=== PATIENT | female | born 1945 | race Caucasian/White ===

== ENCOUNTER 2019-12-06 08:42 | Emergency (ER) | payer MEDICARE, OTHER ==
[2019-12-06] MEDS ORDERED: VENTOLIN COMMON CANISTER IH ONE (09:00)
[2019-12-06] MEDS ORDERED: solu-MEDROL 125 MG IV ONE (09:04)
[2019-12-06 09:09] LABS: A-aADO2 103; ABG HEMOGLOBIN 14.3; ABG POTASSIUM 3.8 (3.5-5.1); ABG SITE RIGHT RADIAL; ALLEN TEST OK? YES; ARTERIAL BLOOD GAS BASE EXCESS -3.7 (-2.0-2.0); ARTERIAL BLOOD GAS FIO2 36 %; ARTERIAL BLOOD GAS PCO2 42 mmHg (35-45); ARTERIAL BLOOD GAS PO2 101 mmHg (75-100); ARTERIAL BLOOD GAS pH 7.33 (7.35-7.45); CARBOXYHEMOGLOBIN 0.7 % THgb (0.0-6.9); HCO3- 22.1 (22-28); HGB O2 SAT 96.6 g/dF (94-100); Lactic Acid 1.1 (0.4-2.0); Methhemoglobin 0.8 % (1.4-1.5); O2 CONTENT 36 % vol
[2019-12-06] MEDS ORDERED: solu-MEDROL 125 MG ONE (09:10)
[2019-12-06] MEDS ORDERED: Lasix 40 MG/4 ML IV ONE ×2 (09:12→13:10)
[2019-12-06] MEDS ORDERED: NITRO-BID 2% UD PACKETS TOP ONE (09:13)
[2019-12-06] MEDS ORDERED: Lasix 40 MG/4 ML ONE ×2 (09:14→13:45)
--- NOTE | 2019-12-06 09:14 | ERPHSYRPT ---
- History of Present Illness Time Seen by Provider: 12/06/19 09:00 Source: patient Exam Limitations: no limitations Physician History: 74 yo presented with gradual worsening SOB for 2 days with activity initially but since last night even at resting and with lying down causing difficult to sleep. she is c/o pressure tightness in center of chest with SOB. denies any h/o CHF /COPD etc. denies fever or chills but has mild dry to wet cough. no known sick contact. patient was in severe distress on presentation with saturation around 85% RA , placed on 4 L and is now above 95%. Timing/Duration: day(s) (2), gradual onset, worse Activities at Onset: rest Severity of Dyspnea-Max: severe Severity of Dyspnea-Current: severe Possible Cause: no prior episodes Modifying Factors: Improves With: activity Associated Symptoms: constant, chest pain/discomfort, wheezing, sweating, tightness, No edema, No fever Allergies/Adverse Reactions: No Known Drug Allergies Allergy (Verified 12/06/19 09:52) Home Medications: Atorvastatin Calcium [Lipitor] 10 mg PO DAILY 10/26/15 [History] Calcium Carbonate/Vitamin D3 [Calcium 600 + Vit D Tablet] 1 ea PO DAILY 10/26/15 [History] Carvedilol 3.125 mg [Coreg 3.125 MG] 6.25 mg PO BID 10/26/15 [History] Clopidogrel Bisulfate 75 mg [PLAVIX 75 MG Tablet] 75 mg PO DAILY 10/26/15 [History] Levothyroxine Sodium 100 Mcg [Synthroid 100 Mcg] 100 mcg PO DAILY 10/26/15 [History] Losartan Potassium 100 mg PO DAILY 10/26/15 [History] Aspirin 81 gm Chew [Baby Aspirin 81 mg Chew] 1 tab PO DAILY 12/06/19 [History] Cholecalciferol (Vitamin D3) [D-2000] 2,000 unit PO DAILY 12/06/19 [History] Diphenhydramine HCl 25 mg [Benadryl 25 mg Capsule] 1 tab PO HS 12/06/19 [History] Magnesium Oxide [Magnesium] 400 mg PO DAILY 12/06/19 [History] Potassium Chloride 10 meq PO DAILY 12/06/19 [History] hydroCHLOROthiazide [Hydrochlorothiazide] 12.5 mg PO DAILY 12/06/19 [History] - Review of Systems Constitutional: Chills, Fatigue Eyes: No Symptoms Ears, Nose, & Throat: No Symptoms Respiratory: Dyspnea, Wheezing Cardiac: Chest Pain Abdominal/Gastrointestinal: No Symptoms Genitourinary Symptoms: No Symptoms Musculoskeletal: No Symptoms Skin: No Symptoms Neurological: No Symptoms Psychological: No Symptoms Endocrine: No Symptoms Hematologic/Lymphatic: No Symptoms, Easy Bruising Immunological/Allergic: No Symptoms - Past Medical History Pertinent Past Medical History: No Neurological History: No Pertinent History ENT History: No Pertinent History Cardiac History: No Pertinent History Respiratory History: No Pertinent History Endocrine Medical History: Other Musculoskeletal History: No Pertinent History GI Medical History: Polyps History: No Pertinent History Psycho-Social History: No Pertinent History Female Reproductive Disorders: Other - Past Surgical History Past Surgical History: Yes Neuro Surgical History: No Pertinent History Cardiac: No Pertinent History Gastrointestinal: Cholecystectomy Female Surgical History: Section, Hysterectomy Other Surgical History: states ear stapenectomy bilateral, x three,breast bx x 2-right,1-left,bx bx benign,hysterectomy after uterine rupture, thryroid cancer - Social History Smoking Status: Never smoker Exposure to second hand smoke: No Drug Use: none - Nursing Vital Signs Nursing Vital Signs: Initial Vital Signs Temperature 97.9 F 12/06/19 09:35 Pulse Rate 95 H 12/06/19 09:35 Respiratory Rate 40 H 12/06/19 09:35 Blood Pressure 197/113 12/06/19 09:35 O2 Sat by Pulse Oximetry 85 L 12/06/19 09:35 Pain Scale Pain Intensity 0 - Physical Exam General Appearance: moderate distress, alert Eye Exam: PERRL/EOMI, eyes nml inspection Ears, Nose, Throat Exam: hearing grossly normal, pharyngeal erythema Neck Exam: normal inspection, non-tender, supple, full range of motion Respiratory Exam: respiratory distress, accessory muscle use, crackles/rales, rhonchi Cardiovascular/Chest Exam: normal heart sounds, regular rate/rhythm Abdominal/Gastrointestinal Exam: soft, normal bowel sounds, tenderness Extremity Exam: non-tender, normal range of motion, normal inspection, normal capillary refill Neurologic Exam: alert, oriented x 3, cooperative Skin Exam: normal color, warm, dry SpO2 Interpretation: normal, O2 applied SpO2: 96 O2 Delivery: Nasal Cannula (4L) - Course Nursing assessment & vital signs reviewed: Yes EKG Interpreted by Me: RATE (93), Sinus Rhythm, NORMAL AXIS, NORMAL INTERVALS, Non-specific ST Changes Ordered Tests: Active Orders 24 hr Category Date Time Status Ophthalmic Medical Assistant STAT Care 12/06/19 09:06 Active EKG-ER Only STAT Care 12/06/19 09:04 Active IV Insertion STAT Care 12/06/19 09:04 Active Oxygen-ED Only Nasal Cannula 4 lpm Care 12/06/19 09:04 Active CHEST 1 VIEW (PORTABLE) Stat Exams 12/06/19 09:05 Taken CHEST WITH CONTRAST [CT] Stat Exams 12/06/19 10:38 Taken ARTERIAL BLOOD GASES Stat Lab 12/06/19 09:06 Completed BLOOD CULTURE Stat Lab 12/06/19 09:20 Received CBC W DIFF Stat Lab 12/06/19 09:30 Completed CMP Stat Lab 12/06/19 09:30 Completed D-DIMER QUANTITATIVE Stat Lab 12/06/19 09:30 Completed Lactic Acid Stat Lab 12/06/19 09:06 Completed MAGNESIUM Stat Lab 12/06/19 09:30 Completed NT PRO BNP Stat Lab 12/06/19 09:30 Completed PROTIME WITH INR Stat Lab 12/06/19 09:30 Completed PTT Stat Lab 12/06/19 09:30 Completed TROPONIN Q3H Lab 12/06/19 09:30 Completed TROPONIN Q3H Lab 12/06/19 12:15 Completed TROPONIN Q3H Lab 12/06/19 15:15 Ordered TROPONIN Q3H Lab 12/06/19 18:15 Ordered TROPONIN Q3H Lab 12/06/19 21:15 Ordered UA W/RFX UR CULTURE Stat Lab 12/06/19 10:21 Completed BiPap/CPAP STAT RT 12/06/19 09:41 Active Respiratory MDI UD RT 12/06/19 09:41 Active Respiratory Therapy Assessment DAILY RT 12/06/19 09:41 Active Medication Summary Generic Name Dose Route Start Last Admin Trade Name Freq PRN Reason Stop Dose Admin Aspirin 324 mg 12/06/19 10:00 12/06/19 09:51 Ecotrin 81 Mg PO 01/05/20 09:59 324 mg DAILY NATHAN Administration Carvedilol 6.25 mg 12/06/19 14:00 Coreg 6.25 Mg PO 12/06/19 14:01 NOW ONE Clopidogrel Bisulfate 75 mg 12/07/19 10:00 Plavix 75 Mg Tablet PO 01/06/20 09:59 DAILY NATHAN Levothyroxine Sodium 100 mcg 12/07/19 10:00 Synthroid 100 Mcg PO 01/06/20 09:59 QAM NATHAN Losartan Potassium 50 mg 12/07/19 10:00 Cozaar 50 Mg PO 01/06/20 09:59 DAILY NATHAN Potassium Chloride 10 meq 12/07/19 10:00 Klor Con 10 Meq PO 01/06/20 09:59 DAILY NATHAN Simvastatin 10 mg 12/07/19 10:00 Zocor 10mg PO 01/06/20 09:59 DAILY NATHAN Discontinued Medications Generic Name Dose Route Start Last Admin Trade Name Freq PRN Reason Stop Dose Admin Albuterol Sulfate 4 puff 12/06/19 09:00 12/06/19 09:00 Ventolin Common Canister IH 12/06/19 09:01 4 puff STAT ONE Administration Furosemide 40 mg 12/06/19 09:12 12/06/19 09:20 Lasix 40 Mg/4 Ml IV 12/06/19 09:13 40 mg STAT ONE Administration Furosemide Confirm 12/06/19 09:14 Lasix 40 Mg/4 Ml Administered 12/06/19 09:15 Dose 40 mg .ROUTE .STK-MED ONE Furosemide 20 mg 12/06/19 13:10 12/06/19 13:50 Lasix 40 Mg/4 Ml IV 12/06/19 13:11 20 mg STAT ONE Administration Furosemide Confirm 12/06/19 13:45 Lasix 40 Mg/4 Ml Administered 12/06/19 13:46 Dose 40 mg .ROUTE .STK-MED ONE Piperacillin Sod/Tazobactam 100 mls @ 200 mls/hr 12/06/19 10:49 12/06/19 12:52 Sod 3.375 gm/ Sodium Chloride IV 12/06/19 11:18 200 mls/hr STAT ONE Administration Sodium Chloride Confirm 12/06/19 11:08 Sodium Chloride 100ml Mini-Bag Plus Administered 12/06/19 11:09 Dose 100 mls @ ud IV .STK-MED ONE Methylprednisolone Sodium Succinate 125 mg 12/06/19 09:04 12/06/19 09:15 Solu-Medrol 125 Mg IV 12/06/19 09:05 125 mg STAT ONE Administration Methylprednisolone Sodium Succinate Confirm 12/06/19 09:10 Solu-Medrol 125 Mg Administered 12/06/19 09:11 Dose 125 mg .ROUTE .STK-MED ONE Nitroglycerin 1 gm 12/06/19 09:13 12/06/19 09:20 Nitro-Bid 2% Ud Packets TOP 12/06/19 09:14 1 gm STAT ONE Administration Nitroglycerin Confirm 12/06/19 09:19 Nitro-Bid 2% Ud Packets Administered 12/06/19 09:20 Dose 1 gm .ROUTE .STK-MED ONE Piperacillin Sod/Tazobactam Sod Confirm 12/06/19 11:08 Zosyn 3.375 Gm Vial Administered 12/06/19 11:09 Dose 3.375 gm IV .STK-MED ONE Lab/Rad Data: Laboratory Result Diagrams 12/06/19 09:30 12/06/19 09:30 Laboratory Results 12/06/19 12/06/19 12/06/19 Range/Units Unknown 12:15 10:21 WBC (4.0-10.5) K/mm3 RBC (4.1-5.4) M/mm3 Hgb (12.0-16.0) gm/dl Hct (35-47) % MCV (78-100) fl MCH (26-32) pg MCHC (32-36) g/dl RDW (11.5-14.0) % Plt Count (150-450) K/mm3 MPV (7.5-11.0) fl Gran % (36.0-66.0) % Eos # (Auto) (0-0.5) Absolute Lymphs (auto) (1.0-4.6) Absolute Monos (auto) (0.0-1.3) Lymphocytes % (24.0-44.0) % Monocytes % (0.0-12.0) % Eosinophils % (0.00-5.0) % Basophils % (0.0-0.4) % Absolute Granulocytes (1.4-6.9) Basophils # (0-0.4) PT (9.95-12.35) SECONDS INR (0.8-3.0) APTT (25.3-37.0) SECONDS D-Dimer (215-500) ng/mL Puncture Site pCO2 (35-45) mmHg pO2 (75-100) mmHg Base Excess (-2.0-2.0) O2 Saturation (94-100) g/dF ABG pH (7.35-7.45) ABG HCO3 (22-28) ABG O2 Sat (Measured) (95-100) % ABG O2 Content % vol Benjamin Test A-a Gradient a/A Ratio Hemoglobin Carboxyhemoglobin (0.0-6.9) % THgb Methemoglobin (1.4-1.5) % Potassium (3.5-5.1) Temperature C POC O2 Flow Rate % Sodium (137-145) mmol/L Chloride (98-107) mmol/L Carbon Dioxide (22-30) mmol/L Anion Gap (5-15) MEQ/L BUN (7-17) mg/dL Creatinine (0.52-1.04) mg/dL Estimated GFR ML/MIN Glucose (74-106) mg/dL Lactic Acid (0.4-2.0) Calcium (8.4-10.2) mg/dL Magnesium (1.6-2.3) mg/dL Total Bilirubin (0.2-1.3) mg/dL AST (14-36) U/L ALT (0-35) U/L Alkaline Phosphatase (38-126) U/L Troponin I 0.086 H* (0.000-0.034) ng/mL NT-Pro-B Natriuret Pep (0-900) pg/mL Serum Total Protein (6.3-8.2) g/dL Albumin (3.5-5.0) g/dL Urine Color COLORLESS (YELLOW) Urine Appearance CLEAR (CLEAR) Urine pH 5.0 (5-6) Ur Specific [place] 1.005 (1.005-1.025) Urine Protein NEGATIVE (Negative) Urine Ketones NEGATIVE (NEGATIVE) Urine Blood NEGATIVE (0-5) Fly/ul Urine Nitrite NEGATIVE (NEGATIVE) Urine Bilirubin NEGATIVE (NEGATIVE) Urine Urobilinogen NEGATIVE (0-1) mg/dL Ur Leukocyte Esterase NEGATIVE (NEGATIVE) Urine WBC (Auto) 0-2 (0-5) /HPF Urine RBC (Auto) 0-2 (0-2) /HPF U Hyaline Cast (Auto) 0-2 (0-2) /LPF U Epithel Cells (Auto) RARE (FEW) /HPF Urine Bacteria (Auto) NONE (NEGATIVE) /HPF Urine Mucus (Auto) SLIGHT (NEGATIVE) /HPF Urine Culture Reflexed NO (NO) Urine Glucose NEGATIVE (NEGATIVE) mg/dL Influenza Type A Ag NEGATIVE (NEGATIVE) Influenza Type B Ag NEGATIVE (NEGATIVE) RSV (PCR) NEGATIVE (Negative) 12/06/19 12/06/19 12/06/19 Range/Units 09:30 09:30 09:30 WBC (4.0-10.5) K/mm3 RBC (4.1-5.4) M/mm3 Hgb (12.0-16.0) gm/dl Hct (35-47) % MCV (78-100) fl MCH (26-32) pg MCHC (32-36) g/dl RDW (11.5-14.0) % Plt Count (150-450) K/mm3 MPV (7.5-11.0) fl Gran % (36.0-66.0) % Eos # (Auto) (0-0.5) Absolute Lymphs (auto) (1.0-4.6) Absolute Monos (auto) (0.0-1.3) Lymphocytes % (24.0-44.0) % Monocytes % (0.0-12.0) % Eosinophils % (0.00-5.0) % Basophils % (0.0-0.4) % Absolute Granulocytes (1.4-6.9) Basophils # (0-0.4) PT 11.5 (9.95-12.35) SECONDS INR 1.02 (0.8-3.0) APTT 27.0 (25.3-37.0) SECONDS D-Dimer 608 H* (215-500) ng/mL Puncture Site pCO2 (35-45) mmHg pO2 (75-100) mmHg Base Excess (-2.0-2.0) O2 Saturation (94-100) g/dF ABG pH (7.35-7.45) ABG HCO3 (22-28) ABG O2 Sat (Measured) (95-100) % ABG O2 Content % vol Benjamin Test A-a Gradient a/A Ratio Hemoglobin Carboxyhemoglobin (0.0-6.9) % THgb Methemoglobin (1.4-1.5) % Potassium 4.0 (3.5-5.1) Temperature C POC O2 Flow Rate % Sodium 140 (137-145) mmol/L Chloride 107 (98-107) mmol/L Carbon Dioxide 24 (22-30) mmol/L Anion Gap 13.8 (5-15) MEQ/L BUN 25 H (7-17) mg/dL Creatinine 1.07 H (0.52-1.04) mg/dL Estimated GFR 53.6 ML/MIN Glucose 233 H (74-106) mg/dL Lactic Acid (0.4-2.0) Calcium 9.1 (8.4-10.2) mg/dL Magnesium 2.0 (1.6-2.3) mg/dL Total Bilirubin 0.60 (0.2-1.3) mg/dL AST 50 H (14-36) U/L ALT 49 H (0-35) U/L Alkaline Phosphatase 132 H (38-126) U/L Troponin I < 0.012 (0.000-0.034) ng/mL NT-Pro-B Natriuret Pep 1140 H (0-900) pg/mL Serum Total Protein 7.1 (6.3-8.2) g/dL Albumin 4.0 (3.5-5.0) g/dL Urine Color (YELLOW) Urine Appearance (CLEAR) Urine pH (5-6) Ur Specific [place] (1.005-1.025) Urine Protein (Negative) Urine Ketones (NEGATIVE) Urine Blood (0-5) Fly/ul Urine Nitrite (NEGATIVE) Urine Bilirubin (NEGATIVE) Urine Urobilinogen (0-1) mg/dL Ur Leukocyte Esterase (NEGATIVE) Urine WBC (Auto) (0-5) /HPF Urine RBC (Auto) (0-2) /HPF U Hyaline Cast (Auto) (0-2) /LPF U Epithel Cells (Auto) (FEW) /HPF Urine Bacteria (Auto) (NEGATIVE) /HPF Urine Mucus (Auto) (NEGATIVE) /HPF Urine Culture Reflexed (NO) Urine Glucose (NEGATIVE) mg/dL Influenza Type A Ag (NEGATIVE) Influenza Type B Ag (NEGATIVE) RSV (PCR) (Negative) 12/06/19 12/06/19 Range/Units 09:30 09:06 WBC 11.1 H (4.0-10.5) K/mm3 RBC 4.50 (4.1-5.4) M/mm3 Hgb 14.0 (12.0-16.0) gm/dl Hct 41.7 (35-47) % MCV 92.7 (78-100) fl MCH 31.1 (26-32) pg MCHC 33.6 (32-36) g/dl RDW 13.4 (11.5-14.0) % Plt Count 330 (150-450) K/mm3 MPV 10.6 (7.5-11.0) fl Gran % 64.3 (36.0-66.0) % Eos # (Auto) 0.28 (0-0.5) Absolute Lymphs (auto) 2.81 (1.0-4.6) Absolute Monos (auto) 0.80 (0.0-1.3) Lymphocytes % 25.4 (24.0-44.0) % Monocytes % 7.2 (0.0-12.0) % Eosinophils % 2.5 (0.00-5.0) % Basophils % 0.6 (0.0-0.4) % Absolute Granulocytes 7.12 H (1.4-6.9) Basophils # 0.07 (0-0.4) PT (9.95-12.35) SECONDS INR (0.8-3.0) APTT (25.3-37.0) SECONDS D-Dimer (215-500) ng/mL Puncture Site RIGHT RADIAL pCO2 42 (35-45) mmHg pO2 101 H (75-100) mmHg Base Excess -3.7 L (-2.0-2.0) O2 Saturation 96.6 (94-100) g/dF ABG pH 7.33 L (7.35-7.45) ABG HCO3 22.1 (22-28) ABG O2 Sat (Measured) 98.0 (95-100) % ABG O2 Content 36 % vol Benjamin Test YES A-a Gradient 103 a/A Ratio 0.50 Hemoglobin 14.3 Carboxyhemoglobin 0.7 (0.0-6.9) % THgb Methemoglobin 0.8 L (1.4-1.5) % Potassium 3.8 (3.5-5.1) Temperature 37.0 C POC O2 Flow Rate 36 % Sodium (137-145) mmol/L Chloride (98-107) mmol/L Carbon Dioxide (22-30) mmol/L Anion Gap (5-15) MEQ/L BUN (7-17) mg/dL Creatinine (0.52-1.04) mg/dL Estimated GFR ML/MIN Glucose (74-106) mg/dL Lactic Acid 1.1 (0.4-2.0) Calcium (8.4-10.2) mg/dL Magnesium (1.6-2.3) mg/dL Total Bilirubin (0.2-1.3) mg/dL AST (14-36) U/L ALT (0-35) U/L Alkaline Phosphatase (38-126) U/L Troponin I (0.000-0.034) ng/mL NT-Pro-B Natriuret Pep (0-900) pg/mL Serum Total Protein (6.3-8.2) g/dL Albumin (3.5-5.0) g/dL Urine Color (YELLOW) Urine Appearance (CLEAR) Urine pH (5-6) Ur Specific [place] (1.005-1.025) Urine Protein (Negative) Urine Ketones (NEGATIVE) Urine Blood (0-5) Fly/ul Urine Nitrite (NEGATIVE) Urine Bilirubin (NEGATIVE) Urine Urobilinogen (0-1) mg/dL Ur Leukocyte Esterase (NEGATIVE) Urine WBC (Auto) (0-5) /HPF Urine RBC (Auto) (0-2) /HPF U Hyaline Cast (Auto) (0-2) /LPF U Epithel Cells (Auto) (FEW) /HPF Urine Bacteria (Auto) (NEGATIVE) /HPF Urine Mucus (Auto) (NEGATIVE) /HPF Urine Culture Reflexed (NO) Urine Glucose (NEGATIVE) mg/dL Influenza Type A Ag (NEGATIVE) Influenza Type B Ag (NEGATIVE) RSV (PCR) (Negative) - Progress Progress: improved, re-examined Air Movement: fair Progress Note: 12/06/19 13:22 she is given solumedrol/albuterol along with lasix and placed on BiPAP which helped her a lot. Ekg didnt show any ST elvation, given nitropaste and aspirin and chest tightness is better . cxr showed congestion with questionable pneumonia and is given a dose of lasix. CTA chest r/o PE . after 3 hours patient is taken off of bipap and current around 98 % on 4 liters. she has new onset XHF with BNP around 1100s, needs further iv diuresis and detailed cardiac evaluation. recommended admission but patient refused to stay here and wants to go [facility]. Transfer center is called , reviewed workup /plan , agreed and patient is accepted for transfer. Blood Culture(s) Obtained: Yes Antibiotics given: Yes Will see patient in: other Counseled pt/family regarding: lab results, diagnosis, rad results - Departure Departure Disposition: Transfer Clinical Impression: Respiratory failure Qualifiers: Chronicity: acute Respiratory failure complication: hypoxia Qualified Code(s): J96.01 - Acute respiratory failure with hypoxia Acute exacerbation of CHF (congestive heart failure) Qualifiers: Heart failure type: unspecified Qualified Code(s): I50.9 - Heart failure, unspecified Condition: Fair Critical Care Time: Yes Critical Care Time(excluding separately billable procedures): Critical 30-74 mins Referrals: SAUL VERMA NP [Primary Care Provider] - Instructions: Heart Failure
[2019-12-06] MEDS ORDERED: NITRO-BID 2% UD PACKETS ONE (09:19)
[2019-12-06 09:31] LABS: Absolute Neutrophil Ct (ANC) 7.12 (1.4-6.9); BASOPHIL % 0.6 % (0.0-0.4); Basophil (Absolute #) 0.07 (0-0.4); Eosinophil % 2.5 % (0.00-5.0); Eosinophil (Absolute #) 0.28 (0-0.5); Hematocrit 41.7 % (35-47); Lymphocyte (Absolute #) 2.81 (1.0-4.6); Lymphocytes % 25.4 % (24.0-44.0); Mean Cell Volume 92.7 fl (78-100); Mean Corpuscular Hemoglobin 31.1 pg (26-32); Mean Corpuscular Hgb Concent. 33.6 g/dl (32-36); Mean Platelet Volume 10.6 fl (7.5-11.0); Monocytes % 7.2 % (0.0-12.0); Neutrophil % 64.3 % (36.0-66.0); Platelet Count 330 K/mm3 (150-450); Red Cell Distribution Width 13.4 % (11.5-14.0); White Blood Count 11.1 K/mm3 (4.0-10.5)
[2019-12-06 09:38] LABS: INR 1.02 (0.8-3.0); PROTIME 11.5 SECONDS (9.95-12.35)
[2019-12-06 09:53] LABS: ANION GAP 13.8 MEQ/L (5-15); BILIRUBIN,TOTAL 0.6 mg/dL (0.2-1.3); Calcium 9.1 mg/dL (8.4-10.2); Creatinine 1 1.07 mg/dL (0.52-1.04); Total Protein 7.1 g/dL (6.3-8.2)
[2019-12-06] MEDS ORDERED: ECOTRIN 81 MG PO SCH (10:00)
[2019-12-06 10:11] LABS: INFLUENZA A NEGATIVE (NEGATIVE); INFLUENZA B NEGATIVE (NEGATIVE); RESPIRATORY SYNCTIAL VIRUS NEGATIVE (Negative)
[2019-12-06 11:07] LABS: Appearance CLEAR (CLEAR); Bilirubin NEGATIVE (NEGATIVE); Blood NEGATIVE Ery/ul (0-5); Epithelial Cells RARE /HPF (FEW); Glucose NEGATIVE (NEGATIVE); Hyaline Casts 0-2 /LPF (0-2); Ketones NEGATIVE (NEGATIVE); Leukocyte Esterase NEGATIVE (NEGATIVE); Mucus SLIGHT /HPF (NEGATIVE); Nitrite NEGATIVE (NEGATIVE); Protein,Urine Dip NEGATIVE (Negative); RBC 0-2 /HPF (0-2); Specific Gravity 1.005 (1.005-1.025); Urobilinogen NEGATIVE mg/dL (0-1); WBC 0-2 /HPF (0-5)
[2019-12-06] MEDS ORDERED: Sodium Chloride 100ML MINI-BAG PLUS 100 ML IV ONE (11:08)
[2019-12-06] MEDS ORDERED: Zosyn 3.375 GM Vial IV ONE (11:08)
[2019-12-06] MEDS: Zosyn 3.375 GM Vial 3.375 GM in Sodium Chloride 100ML MINI-BAG PLUS 100 ML IV ONE (12:52)
[2019-12-06] MEDS ORDERED: Coreg 6.25 MG PO ONE (14:00)
[2019-12-06] MEDS ORDERED: Klor Con 10 MEQ PO ONE ×2 (14:00→14:15)
[2019-12-06] MEDS ORDERED: PLAVIX 75 MG Tablet ONE (14:01)
[2019-12-06] MEDS ORDERED: PLAVIX 75 MG Tablet PO ONE (14:15)
[2019-12-06] MEDS ORDERED: Cozaar 50 MG PO ONE (14:15)
[2019-12-06] MEDS ORDERED: Zocor 10MG PO ONE (14:15)
[2019-12-06] MEDS ORDERED: SYNTHROID 100 MCG PO ONE (14:15)
[2019-12-06 14:16] VITALS: BP 155/87; PULSE 87; O2SAT 95
--- NOTE | 2019-12-06 17:23 | XRAY ---
Indication: Short of breath and elevated d-dimer. Suspect Covid 19. Multiple contiguous axial images obtained through the chest using 80 cc Isovue-370 contrast and PE protocol. Comparison: None There is good opacification of the pulmonary arteries to include the lobar and segmental branches. No filling defect or pulmonary embolus. Heart is not enlarged. Aorta is normal in course and caliber with minimal calcifications. No pathologic mediastinal/hilar lymphadenopathy. Lungs demonstrates small bilateral dependent atelectasis/effusions, right greater than left. Minimal biapical subpleural fibrosis/scarring. Bony thorax intact with minimal degenerative changes. Limited upper abdomen demonstrates a few small bilateral renal cysts and cholecystectomy clips. Impression: 1. Negative pulmonary embolus. 2. Small bilateral dependent atelectasis/effusions without cardiomegaly. 3. No CT findings present to indicate pneumonia. CT may be negative in the early stages of Covid 19. 4. Incidental bilateral renal cysts. Comment: Preliminary interpretation was made by [facility]. No critical discrepancy.
--- NOTE | 2019-12-06 17:25 | XRAY ---
Indication: Short of breath. Suspect Covid 19. Comparison: None Portable chest demonstrates hazy interstitial alveolar opacities bilaterally without consolidation/large effusion. Heart is not enlarged. Bony thorax intact with mild degenerative changes.
== END 2019-12-06 14:44 | disposition short-term general hospital (02) ==
LOC: ED 08:42
DX: J96.01 Acute respiratory failure with hypoxia (principal); I50.9 Heart failure, unspecified; R07.89 Other chest pain; Z79.899 Other long term (current) drug therapy
CPT/HCPCS: 36000; 36415; 36600; 71045; 71260; 80053; 81001; 82375; 82803; 83605; 83735; 83880; 84484; 85025; 85379; 85610; 85730; 87040; 87631; 93005; 93041; 94002; 94640; 96365; 96374; 96375; 96376; 99285; 99291; J1940; J2930; A9270-GY

== ENCOUNTER 2021-04-14 09:20 | Day surgery (SDC) | payer MEDICARE, OTHER ==
--- NOTE | 2021-04-13 12:39 | HP ---
DATE OF SURGERY: 04/14/2021 HISTORY OF PRESENT ILLNESS: The patient is a 75-year-old female who presents for colonoscopy. Last colonoscopy was in 2016 and it was normal. However, the patient has had polyps in the past. She denies signs or symptoms at this time. She denies family history of colon cancer. PAST MEDICAL HISTORY: Hypothyroid, hyperlipidemia, hypertension, transient ischemic attack, history of thyroid cancer, coronary artery disease. PAST SURGICAL HISTORY: Thyroidectomy for thyroid cancer. Hysterectomy. Laparoscopic cholecystectomy. Right carotid bypass and carotid stent. Left breast lumpectomy. ALLERGIES: NKDA. MEDICATIONS: Levothyroxine, atorvastatin, losartan, Coreg, Lasix, potassium, Plavix, aspirin, calcium, magnesium. FAMILY HISTORY: Diabetes, hypertension. SOCIAL HISTORY: None. REVIEW OF SYSTEMS: CONSTITUTIONAL: Denies fever or chills. CHEST: Denies shortness of breath. CVS: Denies chest pain. ABDOMEN: Denies abdominal pain, nausea, vomiting, diarrhea, constipation or rectal bleeding. PHYSICAL EXAMINATION: GENERAL: No acute distress. CHEST: Nonlabored. No shortness of breath. CVS: Regular rate and rhythm. ABDOMEN: Soft, nontender. IMPRESSION: History of colon polyps. PLAN: Colonoscopy with Dr. Umesh Hunt. As dictated by Yani Johnson NP.
[2021-04-14] MEDS ORDERED: Lactated Ringers 1,000 ML IV SCH (09:30)
[2021-04-14] MEDS ORDERED: Lactated Ringers 1,000 ML IV ONE (09:37)
[2021-04-14] MEDS ORDERED: DIPRIVAN 200 MG/20 ML IV ONE (11:34)
--- NOTE | 2021-04-14 12:47 | OP ---
SURGERY DATE/TIME: 04/14/2021 1158 PREOPERATIVE DIAGNOSIS: Follow up polyps five year. POSTOPERATIVE DIAGNOSIS: Normal. PROCEDURE: Colonoscopy complete to cecum. SURGEON: Umesh Hunt M.D. ANESTHESIA: MAC. COMPLICATIONS: None. CONDITION: Stable. INDICATION: A patient requiring evaluation, five year follow up polyps. DESCRIPTION OF PROCEDURE: Taken to endoscopy. MAC sedation provided. Excellent anesthesia level was present. Anal digital examination satisfactory. Scope introduced. The scope advanced to the cecum. Base of the cecum, ileocecal valve, appendiceal orifice normal. Ascending, hepatic, transverse, splenic, descending, sigmoid, rectum, anus normal. Bowel prep was excellent. The patient tolerated the procedure well. Follow up five years.
[2021-04-14 13:00] VITALS: O2SAT 98
[2021-04-14 13:02] VITALS: BP 168/72; PULSE 74
== END 2021-04-14 13:10 | disposition home or self-care (01) ==
LOC: SDC 09:20
PROVIDERS: ATTEND Surgery
DX: Z09 Encounter for follow-up examination after completed treatment for conditions other than malignant neoplasm (principal); Z86.010 Personal history of colon polyps; Z79.899 Other long term (current) drug therapy
CPT/HCPCS: 99100; J2704

== ENCOUNTER 2023-04-11 14:19 | Day surgery (SDC) | payer MEDICARE, OTHER ==
[2023-04-11] MEDS ORDERED: Depo-Medrol 40 MG/ML IM ONE (14:20)
[2023-04-11] MEDS ORDERED: BUPIVACAINE 0.5% VIAL IJ ONE (14:20)
[2023-04-11] MEDS ORDERED: DIPRIVAN 200 MG/20 ML IV ONE (16:35)
[2023-04-11] MEDS ORDERED: Xylocaine-Mpf 2% 5 Ml Vial ONE (16:36)
[2023-04-11] MEDS ORDERED: Lactated Ringers 1,000 ML IV ONE (17:27)
--- NOTE | 2023-04-11 17:31 | XRAY ---
25 seconds of fluoroscopy was used in surgery for a right sacroiliac joint and right ischial bursa injection.
--- NOTE | 2023-04-11 17:31 | XRAY ---
Indication: Right SI joint and right ischial bursa injection. Intraoperative fluoroscopy provided for 25 seconds. 3 digital spot image submitted for interpretation demonstrates posterior needle tip projecting over the right SI joint. Small amount of contrast projects over right ischial tuberosity. Correlate with intraoperative findings/report.
== END 2023-04-11 17:03 | disposition home or self-care (01) ==
LOC: SDC-PAIN 14:19
PROVIDERS: ATTEND Psychiatry & Neurology Pain Medicine
DX: M46.1 Sacroiliitis, not elsewhere classified (principal); M70.71 Other bursitis of hip, right hip
CPT/HCPCS: 20610; 27096; 72170; 77002; G0260; 99100; J1030; J2704; Q9966

== ENCOUNTER 2025-05-06 09:53 | Day surgery (SDC) | payer MEDICARE, OTHER ==
[2025-05-06] MEDS ORDERED: BUPIVACAINE 0.5% VIAL IJ ONE (09:54)
[2025-05-06] MEDS ORDERED: methylPREDNISolone acetate IM ONE (09:54)
[2025-05-06] MEDS ORDERED: Versed 2 MG/2 ML Injection ONE (11:37)
[2025-05-06] MEDS ORDERED: propofoL IV ONE (12:02)
[2025-05-06] MEDS ORDERED: TRANDATE 20 MG/4 ML SYRINGE IV ONE (12:30)
--- NOTE | 2025-05-06 13:26 | XRAY ---
Indication: Left hip injection. Intraoperative fluoroscopy provided for 22 seconds. Single digital spot image submitted for interpretation demonstrates needle tip projecting lateral to left femur neck. Small amount of contrast injected for needle tip placement. Correlate with intraoperative findings/report.
--- NOTE | 2025-05-06 13:30 | XRAY ---
22 seconds of fluoroscopy was used in surgery for a left intra-articular hip injection.
[2025-05-06] MEDS ORDERED: Lactated Ringers 1,000 ML IV ONE (13:44)
== END 2025-05-06 13:05 | disposition home or self-care (01) ==
LOC: SDC-PAIN 09:53
PROVIDERS: ATTEND Psychiatry & Neurology Pain Medicine
DX: M16.12 Unilateral primary osteoarthritis, left hip (principal)